=== PATIENT | female | born 1950 | race Caucasian/White ===

== ENCOUNTER 2018-04-23 18:37 | Inpatient (IN) | payer OTHER ==
[2018-04-23] MEDS ORDERED: ALBUTEROL/IPRATROPIUM (NEB) 3 ML AMP HHN (21:30)
[2018-04-23] MEDS ORDERED: NACL 0.9% 3 ML SYG IV (21:30)
[2018-04-23] MEDS ORDERED: NITROGLYCERIN (SL) 0.4 MG TAB SL (21:30)
[2018-04-23] MEDS ORDERED: ONDANSETRON 4 MG INJ IV (21:30)
[2018-04-23] MEDS ORDERED: ACETAMINOPHEN 325 MG TAB PO (21:30)
[2018-04-24] MEDS: FAMOTIDINE 20 MG TAB PO (05:50)
[2018-04-24 06:12] LABS: ADD MAN DIFF? NO
[2018-04-24 06:25] LABS: BASOPHILS % 0.4 % (0.0-2.0); EOSINOPHILS # 0.3 10^3/ul (0.0-0.5); EOSINOPHILS % 3.8 % (0.0-7.0); HEMATOCRIT 24.1 % (37.0-47.0); HEMOGLOBIN 7.4 g/dl (12.0-16.0); LYMPHOCYTES # 1.4 10^3/ul (0.8-2.9); LYMPHOCYTES % 17.8 % (15.0-51.0); MEAN CORPUSCULAR HEMOGLOBIN 28.9 pg (29.0-33.0); MEAN CORPUSCULAR HGB CONC 30.7 g/dl (32.0-37.0); MEAN CORPUSCULAR VOLUME 94.1 fl (82.0-101.0); MEAN PLATELET VOLUME 9.6 fl (7.4-10.4); MONOCYTE # 0.6 10^3/ul (0.3-0.9); MONOCYTES % 7.5 % (0.0-11.0); NEUTROPHIL # 5.4 10^3/ul (1.6-7.5); NEUTROPHILS % 70.2 % (39.0-77.0); PLATELET COUNT 213 10^3/UL (140-415); RED BLOOD COUNT 2.56 10^6/ul (4.20-5.40); RED CELL DISTRIBUTION WIDTH 16.7 % (11.5-14.5)
[2018-04-24 06:25] LABS: WHITE BLOOD COUNT 7.6 10^3/ul (4.8-10.8)
[2018-04-24 06:40] LABS: HEMOGLOBIN A1C 5.1 % (0-5.9)
[2018-04-24 06:44] LABS: CREATINE KINASE 37 IU/L (23-200)
[2018-04-24 06:50] LABS: CK INDEX 8.7; CK-MB 3.22 ng/ml (0.0-2.4)
[2018-04-24 07:03] LABS: ALANINE AMINOTRANSFERASE 60 IU/L (13-69); ALBUMIN 2.1 g/dl (3.3-4.9); ALBUMIN/GLOBULIN RATIO 0.56; ALKALINE PHOSPHATASE 408 IU/L (42-121); ANION GAP 6 (5-13); ASPARTATE AMINO TRANSFERASE 55 IU/L (15-46); BILIRUBIN,INDIRECT 0.1 mg/dl (0-1.1); BILIRUBIN,TOTAL 0.1 mg/dl (0.2-1.3); BLOOD UREA NITROGEN 24 mg/dl (7-20); CALCIUM 8.3 mg/dl (8.4-10.2); CARBON DIOXIDE 27 mmol/L (21-31); CHLORIDE 105 mmol/L (97-110); CHOL/HDL RATIO 4.3 RATIO; CHOLESTEROL 105 mg/dl (100-200); CREATININE 2.73 mg/dl (0.44-1.00); Estimated GFR 17 mL/min (>60); GLUCOSE 104 mg/dl (70-220); HDL CHOLESTEROL 24 mg/dl (35-98); LDL CHOLESTEROL,CALCULATED 62 mg/dl; MAGNESIUM 1.7 mg/dl (1.7-2.5); POTASSIUM 4.2 mmol/L (3.5-5.1); SODIUM 138 mmol/L (135-144); TOTAL PROTEIN 5.8 g/dl (6.1-8.1); TRIGLYCERIDES 95 mg/dl (0-149)
[2018-04-24] MEDS ORDERED: HEPARIN 5,000 UNIT/0.5 ML VIAL ×2 (08:42→20:17)
[2018-04-24] MEDS: AMIODARONE 200 MG TAB PO (08:56)
[2018-04-24] MEDS: ASPIRIN (EC) 81 MG TAB PO (08:56)
[2018-04-24] MEDS: MULTIVIT/CA CARB/B CMPLX/FA TAB PO (08:56)
[2018-04-24] MEDS: METOPROLOL 25 MG TAB PO ×2 (08:57→20:45)
[2018-04-24] MEDS: LEVOFLOXACIN 500MG/D5W (PMX) 100 ML IVPB (09:10)
[2018-04-24] MEDS: HEPARIN 5,000 UNIT/1 ML VIAL SC ×2 (10:08→20:51)
[2018-04-24] MEDS: BALSAM PERU/CASTOR OIL 60 GM TUBE TOP ×2 (11:16→20:52)
[2018-04-24 12:36] LABS: B-TYPE NATRIURETIC PEPTIDE 45100 PG/ML (0-125)
[2018-04-24] MEDS: ALBUTEROL/IPRATROPIUM (NEB) 3 ML AMP HHN ×3 (12:53→20:55)
[2018-04-24 15:23] LABS: HEPATITIS B SURFACE ANTIGEN NEGATIVE (NEGATIVE)
[2018-04-24 15:41] LABS: HEPATITIS B SURFACE ANTIBODY NEGATIVE (NEGATIVE)
[2018-04-24] MEDS: HEPARIN 1000 UNITS/ML 10 ML INJ CATHETER (17:19)
[2018-04-24] MEDS: EPOETIN 10000 UNITS/1 ML INJ (ESRD) SC (18:13)
[2018-04-24] MEDS: ATORVASTATIN 40 MG TAB PO (20:38)
[2018-04-25] MEDS: FAMOTIDINE 20 MG TAB PO ×2 (05:49→08:57)
[2018-04-25 06:05] LABS: ADD MAN DIFF? NO
[2018-04-25 06:12] LABS: WHITE BLOOD COUNT 7.4 10^3/ul (4.8-10.8)
[2018-04-25 06:12] LABS: BASOPHILS % 0.4 % (0.0-2.0); EOSINOPHILS # 0.1 10^3/ul (0.0-0.5); EOSINOPHILS % 1.9 % (0.0-7.0); HEMATOCRIT 23.8 % (37.0-47.0); HEMOGLOBIN 7.2 g/dl (12.0-16.0); LYMPHOCYTES # 1.5 10^3/ul (0.8-2.9); LYMPHOCYTES % 19.8 % (15.0-51.0); MEAN CORPUSCULAR HGB CONC 30.3 g/dl (32.0-37.0); MEAN PLATELET VOLUME 9.7 fl (7.4-10.4); MONOCYTE # 0.6 10^3/ul (0.3-0.9); MONOCYTES % 7.5 % (0.0-11.0); NEUTROPHIL # 5.2 10^3/ul (1.6-7.5); PLATELET COUNT 237 10^3/UL (140-415); RED BLOOD COUNT 2.48 10^6/ul (4.20-5.40); RED CELL DISTRIBUTION WIDTH 16.4 % (11.5-14.5)
[2018-04-25 06:34] LABS: IRON 22 ug/dl (35-150)
[2018-04-25 06:43] LABS: % IRON SATURATION 14 % SAT (22-52); TOTAL IRON BINDING CAPACITY 157 ug/dl (241-421)
[2018-04-25 07:05] LABS: ANION GAP 4 (5-13); BLOOD UREA NITROGEN 11 mg/dl (7-20); CALCIUM 8.1 mg/dl (8.4-10.2); CARBON DIOXIDE 30 mmol/L (21-31); CHLORIDE 105 mmol/L (97-110); CREATININE 1.47 mg/dl (0.44-1.00); Estimated GFR 36 mL/min (>60); GLUCOSE 104 mg/dl (70-220); POTASSIUM 4.5 mmol/L (3.5-5.1); SODIUM 139 mmol/L (135-144)
[2018-04-25] MEDS ORDERED: HEPARIN 5,000 UNIT/0.5 ML VIAL ×2 (08:43→21:02)
[2018-04-25] MEDS: AMIODARONE 200 MG TAB PO (08:57)
[2018-04-25] MEDS: MULTIVIT/CA CARB/B CMPLX/FA TAB PO (08:57)
[2018-04-25] MEDS: METOPROLOL 25 MG TAB PO ×2 (08:57→21:07)
[2018-04-25] MEDS: BALSAM PERU/CASTOR OIL 60 GM TUBE TOP ×2 (08:58→21:20)
[2018-04-25] MEDS: HEPARIN 5,000 UNIT/1 ML VIAL SC ×2 (09:00→21:20)
[2018-04-25] MEDS: ASPIRIN (EC) 81 MG TAB PO (09:00)
[2018-04-25] MEDS: ALBUTEROL/IPRATROPIUM (NEB) 3 ML AMP HHN ×4 (09:43→20:18)
[2018-04-25] MEDS: SOD FERRIC GLUC COMPLX 125 MG in SOD CHLORIDE 0.9% 100 ML IVPB (12:49)
[2018-04-25] MEDS: ATORVASTATIN 40 MG TAB PO (21:06)
[2018-04-26 06:58] LABS: ADD MAN DIFF? NO
[2018-04-26 07:12] LABS: WHITE BLOOD COUNT 7.5 10^3/ul (4.8-10.8)
[2018-04-26 07:12] LABS: ABNORMAL IP MESSAGE 1; BASOPHILS % 0.5 % (0.0-2.0); EOSINOPHILS # 0.1 10^3/ul (0.0-0.5); EOSINOPHILS % 1.9 % (0.0-7.0); HEMATOCRIT 22.2 % (37.0-47.0); LYMPHOCYTES # 1.3 10^3/ul (0.8-2.9); LYMPHOCYTES % 17.2 % (15.0-51.0); MEAN CORPUSCULAR HEMOGLOBIN 28.8 pg (29.0-33.0); MEAN CORPUSCULAR HGB CONC 30.6 g/dl (32.0-37.0); MEAN CORPUSCULAR VOLUME 94.1 fl (82.0-101.0); MEAN PLATELET VOLUME 9.5 fl (7.4-10.4); MONOCYTE # 0.5 10^3/ul (0.3-0.9); MONOCYTES % 6.7 % (0.0-11.0); NEUTROPHIL # 5.5 10^3/ul (1.6-7.5); NEUTROPHILS % 73.4 % (39.0-77.0); PLATELET COUNT 222 10^3/UL (140-415); RED BLOOD COUNT 2.36 10^6/ul (4.20-5.40); RED CELL DISTRIBUTION WIDTH 16.6 % (11.5-14.5)
[2018-04-26 07:15] LABS: POSITIVE DIFF @See below
[2018-04-26 07:20] LABS: HEMOGLOBIN 6.8 g/dl (12.0-16.0)
[2018-04-26 07:56] LABS: ANION GAP 5 (5-13); BLOOD UREA NITROGEN 20 mg/dl (7-20); CALCIUM 8.3 mg/dl (8.4-10.2); CARBON DIOXIDE 28 mmol/L (21-31); CHLORIDE 102 mmol/L (97-110); CREATININE 2.36 mg/dl (0.44-1.00); Estimated GFR 21 mL/min (>60); GLUCOSE 98 mg/dl (70-220); PHOSPHORUS 3.7 mg/dl (2.5-4.9); POTASSIUM 4.9 mmol/L (3.5-5.1); SODIUM 135 mmol/L (135-144)
[2018-04-26] MEDS ORDERED: HEPARIN 5,000 UNIT/0.5 ML VIAL (08:29)
[2018-04-26] MEDS: MULTIVIT/CA CARB/B CMPLX/FA TAB PO (08:34)
[2018-04-26 08:35] LABS: ANISOCYTOSIS 1+ (0-0); BURR CELLS 1+ (0-0); EOSINOPHILS % (M) 4 % (0-7); GIANT THROMBO% (M) 1 % (0-0); LYMPHOCYTES #M 1.2 10^3/ul (0.8-2.9); LYMPHOCYTES % (M) 16 % (15-51); MONOCYTE #M 0.3 10^3/ul (0.3-0.9); MONOCYTES % (M) 5 % (0-11); POIKILOCYTOSIS 2+ (0-0); POLYCHROMASIA 2+ (0-0); SEGMENTED NEUTROPHILS (M) % 75 % (39-77); SMUDGE%M 4 % (0-0)
[2018-04-26] MEDS: ASPIRIN (EC) 81 MG TAB PO (08:35)
[2018-04-26] MEDS: FAMOTIDINE 20 MG TAB PO (08:35)
[2018-04-26] MEDS: AMIODARONE 200 MG TAB PO (08:36)
[2018-04-26] MEDS: BALSAM PERU/CASTOR OIL 60 GM TUBE TOP ×2 (08:36→20:42)
[2018-04-26] MEDS: METOPROLOL 25 MG TAB PO ×2 (08:40→20:41)
[2018-04-26] MEDS: HEPARIN 5,000 UNIT/1 ML VIAL SC (08:40)
[2018-04-26 08:42] LABS: PATH REVIEW? YES
[2018-04-26 08:43] LABS: PLATELET ESTIMATE NORMAL
[2018-04-26] MEDS: ALBUTEROL/IPRATROPIUM (NEB) 3 ML AMP HHN ×4 (09:50→20:17)
[2018-04-26 10:55] LABS: IMMEDIATE SPIN CROSSMATCH 1 4
[2018-04-26] MEDS: HEPARIN 1000 UNITS/ML 10 ML INJ CATHETER (12:36)
[2018-04-26] MEDS: LEVOFLOXACIN 250MG/D5W (PMX) 50 ML IVPB (12:56)
[2018-04-26] MEDS: SOD FERRIC GLUC COMPLX 125 MG in SOD CHLORIDE 0.9% 100 ML IVPB (17:40)
[2018-04-26] MEDS: ATORVASTATIN 40 MG TAB PO (20:41)
[2018-04-27 06:11] LABS: ADD MAN DIFF? NO
[2018-04-27 06:16] LABS: BASOPHILS % 0.4 % (0.0-2.0); EOSINOPHILS # 0.2 10^3/ul (0.0-0.5); EOSINOPHILS % 1.9 % (0.0-7.0); HEMATOCRIT 32.6 % (37.0-47.0); HEMOGLOBIN 10.5 g/dl (12.0-16.0); LYMPHOCYTES # 1.5 10^3/ul (0.8-2.9); LYMPHOCYTES % 16.1 % (15.0-51.0); MEAN CORPUSCULAR HEMOGLOBIN 29.1 pg (29.0-33.0); MEAN CORPUSCULAR HGB CONC 32.2 g/dl (32.0-37.0); MEAN CORPUSCULAR VOLUME 90.3 fl (82.0-101.0); MEAN PLATELET VOLUME 9.5 fl (7.4-10.4); MONOCYTE # 0.8 10^3/ul (0.3-0.9); NEUTROPHIL # 6.5 10^3/ul (1.6-7.5); NEUTROPHILS % 72.4 % (39.0-77.0); PLATELET COUNT 240 10^3/UL (140-415); RED BLOOD COUNT 3.61 10^6/ul (4.20-5.40); RED CELL DISTRIBUTION WIDTH 16.7 % (11.5-14.5)
[2018-04-27 06:35] LABS: PROTIME 14.4 Sec (11.9-14.9); PT RATIO 1.1
[2018-04-27 06:36] LABS: PARTIAL THROMBOPLASTIN TIME 37.5 Sec (23.0-35.0)
[2018-04-27 06:44] LABS: ANION GAP 6 (5-13); BLOOD UREA NITROGEN 14 mg/dl (7-20); CALCIUM 8.3 mg/dl (8.4-10.2); CARBON DIOXIDE 29 mmol/L (21-31); CHLORIDE 103 mmol/L (97-110); CREATININE 2.08 mg/dl (0.44-1.00); Estimated GFR 24 mL/min (>60); GLUCOSE 103 mg/dl (70-220); PHOSPHORUS 3.1 mg/dl (2.5-4.9); POTASSIUM 4.6 mmol/L (3.5-5.1); SODIUM 138 mmol/L (135-144)
[2018-04-27] MEDS: ALBUTEROL/IPRATROPIUM (NEB) 3 ML AMP HHN ×4 (08:48→20:31)
[2018-04-27] MEDS: ASPIRIN (EC) 81 MG TAB PO (09:42)
[2018-04-27] MEDS: MULTIVIT/CA CARB/B CMPLX/FA TAB PO (09:43)
[2018-04-27] MEDS: FAMOTIDINE 20 MG TAB PO (09:43)
[2018-04-27] MEDS: AMIODARONE 200 MG TAB PO (09:43)
[2018-04-27] MEDS: METOPROLOL 25 MG TAB PO ×2 (09:43→20:35)
[2018-04-27] MEDS: BALSAM PERU/CASTOR OIL 60 GM TUBE TOP ×2 (09:44→20:22)
[2018-04-27] MEDS: SOD FERRIC GLUC COMPLX 125 MG in SOD CHLORIDE 0.9% 100 ML IVPB (17:32)
[2018-04-27] MEDS: EPOETIN 10000 UNITS/1 ML INJ (ESRD) SC (17:33)
[2018-04-27] MEDS: ATORVASTATIN 40 MG TAB PO (20:22)
[2018-04-28 07:49] LABS: ADD MAN DIFF? NO
[2018-04-28 08:00] LABS: WHITE BLOOD COUNT 7.2 10^3/ul (4.8-10.8)
[2018-04-28 08:01] LABS: BASOPHILS % 0.4 % (0.0-2.0); EOSINOPHILS # 0.2 10^3/ul (0.0-0.5); EOSINOPHILS % 2.1 % (0.0-7.0); HEMATOCRIT 35.1 % (37.0-47.0); HEMOGLOBIN 11.4 g/dl (12.0-16.0); LYMPHOCYTES # 1.4 10^3/ul (0.8-2.9); MEAN CORPUSCULAR HEMOGLOBIN 29.2 pg (29.0-33.0); MEAN CORPUSCULAR HGB CONC 32.5 g/dl (32.0-37.0); MEAN CORPUSCULAR VOLUME 89.8 fl (82.0-101.0); MEAN PLATELET VOLUME 9.2 fl (7.4-10.4); MONOCYTE # 0.5 10^3/ul (0.3-0.9); MONOCYTES % 7.3 % (0.0-11.0); NEUTROPHIL # 5.1 10^3/ul (1.6-7.5); NEUTROPHILS % 70.8 % (39.0-77.0); PLATELET COUNT 221 10^3/UL (140-415); RED BLOOD COUNT 3.91 10^6/ul (4.20-5.40); RED CELL DISTRIBUTION WIDTH 16.6 % (11.5-14.5)
[2018-04-28 08:20] LABS: ANION GAP 8 (5-13); BLOOD UREA NITROGEN 21 mg/dl (7-20); CALCIUM 8.7 mg/dl (8.4-10.2); CARBON DIOXIDE 26 mmol/L (21-31); CHLORIDE 101 mmol/L (97-110); CREATININE 2.64 mg/dl (0.44-1.00); Estimated GFR 18 mL/min (>60); GLUCOSE 100 mg/dl (70-220); POTASSIUM 4.4 mmol/L (3.5-5.1); SODIUM 135 mmol/L (135-144)
[2018-04-28] MEDS: ALBUTEROL/IPRATROPIUM (NEB) 3 ML AMP HHN ×3 (08:38→16:13)
[2018-04-28] MEDS: METOPROLOL 25 MG TAB PO (09:00)
[2018-04-28] MEDS: MULTIVIT/CA CARB/B CMPLX/FA TAB PO (09:04)
[2018-04-28] MEDS: ASPIRIN (EC) 81 MG TAB PO (09:04)
[2018-04-28] MEDS: BALSAM PERU/CASTOR OIL 60 GM TUBE TOP (09:04)
[2018-04-28] MEDS: AMIODARONE 200 MG TAB PO (09:05)
[2018-04-28] MEDS: FAMOTIDINE 20 MG TAB PO (09:05)
[2018-04-28] MEDS: LEVOFLOXACIN 250MG/D5W (PMX) 50 ML IVPB (09:05)
[2018-04-28 09:09] LABS: ALANINE AMINOTRANSFERASE 35 IU/L (13-69); ALBUMIN 2.5 g/dl (3.3-4.9); ALKALINE PHOSPHATASE 236 IU/L (42-121); ASPARTATE AMINO TRANSFERASE 58 IU/L (15-46); BILIRUBIN,INDIRECT 0.3 mg/dl (0-1.1); BILIRUBIN,TOTAL 0.3 mg/dl (0.2-1.3); LIPASE 84 U/L (23-300); TOTAL PROTEIN 6.6 g/dl (6.1-8.1)
[2018-04-28] MEDS: HEPARIN 1000 UNITS/ML 10 ML INJ CATHETER (15:02)
[2018-04-28] MEDS: SOD FERRIC GLUC COMPLX 125 MG in SOD CHLORIDE 0.9% 100 ML IVPB (16:29)
== END 2018-04-28 17:44 | disposition home health service (06) | DRG 291 ==
LOC: TEL 18:37
PROC: 5A1D70Z Performance of Urinary Filtration, Intermittent, Less than 6 Hours Per Day (ICD-10-PCS; 2018-04-24)
PROC: 5A1D70Z Performance of Urinary Filtration, Intermittent, Less than 6 Hours Per Day (ICD-10-PCS; 2018-04-25)
PROC: 30233N1 Transfusion of Nonautologous Red Blood Cells into Peripheral Vein, Percutaneous Approach (ICD-10-PCS; 2018-04-26)
PROC: 5A1D70Z Performance of Urinary Filtration, Intermittent, Less than 6 Hours Per Day (ICD-10-PCS; principal; 2018-04-27)
DX: I13.2 Hypertensive heart and chronic kidney disease with heart failure and with stage 5 chronic kidney disease, or end stage renal disease (principal); L89.153 Pressure ulcer of sacral region, stage 3; N18.6 End stage renal disease; J18.9 Pneumonia, unspecified organism; I50.23 Acute on chronic systolic (congestive) heart failure; I69.954 Hemiplegia and hemiparesis following unspecified cerebrovascular disease affecting left non-dominant side; I48.0 Paroxysmal atrial fibrillation; N28.1 Cyst of kidney, acquired; D63.1 Anemia in chronic kidney disease; N28.89 Other specified disorders of kidney and ureter; E78.5 Hyperlipidemia, unspecified; Z99.2 Dependence on renal dialysis; I25.2 Old myocardial infarction
CPT/HCPCS: 36430; 71045; 76700; 80048; 80053; 80061; 80076; 82550; 82553; 82728; 82962; 83036; 83540; 83690; 83735; 83880; 84100; 84443; 84484; 85025; 85610; 85730; 86706; 86850; 86900; 86901; 86920; 87340; 90935; 93306; 94640; 94664

== ENCOUNTER 2018-06-09 11:09 | Inpatient (IN) | payer OTHER ==
[2018-06-09] MEDS ORDERED: ACETAMINOPHEN 325 MG TAB PO (14:00)
[2018-06-09] MEDS ORDERED: HYDROCODONE/APAP (5/325) TAB PO (14:00)
[2018-06-09] MEDS ORDERED: ONDANSETRON 4 MG INJ IV (14:00)
[2018-06-09] MEDS ORDERED: NACL 0.9% 3 ML SYG IV (14:00)
[2018-06-09] MEDS: FAMOTIDINE 20 MG TAB PO (20:14)
[2018-06-09] MEDS: ATORVASTATIN 40 MG TAB PO (20:14)
[2018-06-09] MEDS: METOPROLOL 25 MG TAB PO (20:15)
[2018-06-09] MEDS: HEPARIN 5,000 UNIT/1 ML VIAL SC (21:24)
[2018-06-10 05:53] LABS: ADD MAN DIFF? NO
[2018-06-10 05:55] LABS: WHITE BLOOD COUNT 9.7 10^3/ul (4.8-10.8)
[2018-06-10 05:55] LABS: BASOPHIL # 0.1 10^3/ul (0.0-0.1); BASOPHILS % 0.5 % (0.0-2.0); EOSINOPHILS # 0.3 10^3/ul (0.0-0.5); EOSINOPHILS % 2.6 % (0.0-7.0); HEMATOCRIT 26.6 % (37.0-47.0); HEMOGLOBIN 8.2 g/dl (12.0-16.0); LYMPHOCYTES # 2.5 10^3/ul (0.8-2.9); LYMPHOCYTES % 25.7 % (15.0-51.0); MEAN CORPUSCULAR HEMOGLOBIN 28.9 pg (29.0-33.0); MEAN CORPUSCULAR HGB CONC 30.8 g/dl (32.0-37.0); MEAN CORPUSCULAR VOLUME 93.7 fl (82.0-101.0); MEAN PLATELET VOLUME 9.3 fl (7.4-10.4); MONOCYTE # 0.5 10^3/ul (0.3-0.9); MONOCYTES % 5.3 % (0.0-11.0); NEUTROPHIL # 6.4 10^3/ul (1.6-7.5); NEUTROPHILS % 65.5 % (39.0-77.0); PLATELET COUNT 216 10^3/UL (140-415); RED BLOOD COUNT 2.84 10^6/ul (4.20-5.40)
[2018-06-10 06:29] LABS: ALANINE AMINOTRANSFERASE 14 IU/L (13-69); ALBUMIN 2.8 g/dl (3.3-4.9); ALBUMIN/GLOBULIN RATIO 0.71; ALKALINE PHOSPHATASE 137 IU/L (42-121); ANION GAP 14 (5-13); ASPARTATE AMINO TRANSFERASE 18 IU/L (15-46); BILIRUBIN,INDIRECT 0.4 mg/dl (0-1.1); BILIRUBIN,TOTAL 0.4 mg/dl (0.2-1.3); BLOOD UREA NITROGEN 34 mg/dl (7-20); CALCIUM 8.6 mg/dl (8.4-10.2); CARBON DIOXIDE 24 mmol/L (21-31); CHLORIDE 99 mmol/L (97-110); CREATININE 3.27 mg/dl (0.44-1.00); Estimated GFR 14 mL/min (>60); GLUCOSE 92 mg/dl (70-220); PHOSPHORUS 5.9 mg/dl (2.5-4.9); POTASSIUM 4.5 mmol/L (3.5-5.1); SODIUM 137 mmol/L (135-144); TOTAL PROTEIN 6.7 g/dl (6.1-8.1)
[2018-06-10 07:08] LABS: HEMOGLOBIN A1C 5.2 % (0-5.9)
[2018-06-10 08:31] LABS: IRON 60 ug/dl (35-150)
[2018-06-10 08:40] LABS: % IRON SATURATION 45 % SAT (22-52); TOTAL IRON BINDING CAPACITY 133 ug/dl (241-421)
[2018-06-10] MEDS ORDERED: MULTIVIT/CA CARB/B CMPLX/FA TAB PO (09:00)
[2018-06-10] MEDS: MULTIVIT/CA CARB/B CMPLX/FA TAB PO (09:34)
[2018-06-10] MEDS: AMIODARONE 200 MG TAB PO (09:34)
[2018-06-10] MEDS: METOPROLOL 25 MG TAB PO ×2 (09:35→22:06)
[2018-06-10] MEDS: SEVELAMER CARBONATE 800 MG TABLET PO ×4 (09:35→22:06)
[2018-06-10] MEDS: HEPARIN 5,000 UNIT/1 ML VIAL SC ×2 (09:52→22:11)
[2018-06-10] MEDS: SOD CHLORIDE 0.9% 100 ML (10:43)
[2018-06-10] MEDS: IOHEXOL 300MG/ML 150 ML BTL (10:44)
[2018-06-10 14:13] LABS: HEPATITIS B SURFACE ANTIGEN NEGATIVE (NEGATIVE)
[2018-06-10] MEDS: HEPARIN 1000 UNITS/ML 10 ML INJ CATHETER (17:50)
[2018-06-10] MEDS: EPOETIN 4000 UNITS/1 ML INJ (ESRD) SC (17:55)
[2018-06-10] MEDS: ATORVASTATIN 40 MG TAB PO (22:06)
[2018-06-10] MEDS: FAMOTIDINE 20 MG TAB PO (22:06)
[2018-06-11 05:21] LABS: ADD MAN DIFF? NO
[2018-06-11 05:30] LABS: WHITE BLOOD COUNT 9.6 10^3/ul (4.8-10.8)
[2018-06-11 05:30] LABS: BASOPHIL # 0.1 10^3/ul (0.0-0.1); BASOPHILS % 0.6 % (0.0-2.0); EOSINOPHILS # 0.2 10^3/ul (0.0-0.5); EOSINOPHILS % 1.9 % (0.0-7.0); HEMATOCRIT 27.6 % (37.0-47.0); HEMOGLOBIN 8.6 g/dl (12.0-16.0); LYMPHOCYTES # 2.5 10^3/ul (0.8-2.9); LYMPHOCYTES % 25.6 % (15.0-51.0); MEAN CORPUSCULAR HEMOGLOBIN 29.1 pg (29.0-33.0); MEAN CORPUSCULAR HGB CONC 31.2 g/dl (32.0-37.0); MEAN CORPUSCULAR VOLUME 93.2 fl (82.0-101.0); MEAN PLATELET VOLUME 9.1 fl (7.4-10.4); MONOCYTE # 0.7 10^3/ul (0.3-0.9); MONOCYTES % 7.2 % (0.0-11.0); NEUTROPHIL # 6.2 10^3/ul (1.6-7.5); NEUTROPHILS % 64.4 % (39.0-77.0); PLATELET COUNT 245 10^3/UL (140-415); RED BLOOD COUNT 2.96 10^6/ul (4.20-5.40); RED CELL DISTRIBUTION WIDTH 17.8 % (11.5-14.5)
[2018-06-11 06:13] LABS: ALANINE AMINOTRANSFERASE 16 IU/L (13-69); ALBUMIN 3.1 g/dl (3.3-4.9); ALKALINE PHOSPHATASE 159 IU/L (42-121); ANION GAP 9 (5-13); ASPARTATE AMINO TRANSFERASE 24 IU/L (15-46); BILIRUBIN,INDIRECT 0.3 mg/dl (0-1.1); BILIRUBIN,TOTAL 0.3 mg/dl (0.2-1.3); BLOOD UREA NITROGEN 16 mg/dl (7-20); CALCIUM 8.8 mg/dl (8.4-10.2); CARBON DIOXIDE 30 mmol/L (21-31); CHLORIDE 100 mmol/L (97-110); CREATININE 2.07 mg/dl (0.44-1.00); Estimated GFR 24 mL/min (>60); GLUCOSE 89 mg/dl (70-220); PHOSPHORUS 3.7 mg/dl (2.5-4.9); POTASSIUM 4.4 mmol/L (3.5-5.1); SODIUM 139 mmol/L (135-144); TOTAL PROTEIN 7.5 g/dl (6.1-8.1)
[2018-06-11] MEDS: AMIODARONE 200 MG TAB PO (08:59)
[2018-06-11] MEDS: MULTIVIT/CA CARB/B CMPLX/FA TAB PO (08:59)
[2018-06-11] MEDS: BALSAM PERU/CASTOR OIL 60 GM TUBE TOP (09:00)
[2018-06-11] MEDS: METOPROLOL 25 MG TAB PO (09:00)
[2018-06-11] MEDS: HEPARIN 5,000 UNIT/1 ML VIAL SC (09:11)
[2018-06-11] MEDS: SEVELAMER CARBONATE 800 MG TABLET PO (13:01)
== END 2018-06-11 15:45 | disposition home or self-care (01) | DRG 698 ==
LOC: TEL 11:09 → MS1 06-10 12:47
PROC: 5A1D70Z Performance of Urinary Filtration, Intermittent, Less than 6 Hours Per Day (ICD-10-PCS; principal; 2018-06-10)
DX: S37.092A Other injury of left kidney, initial encounter (principal); N18.6 End stage renal disease; I48.0 Paroxysmal atrial fibrillation; Z79.01 Long term (current) use of anticoagulants; Z99.2 Dependence on renal dialysis; D63.8 Anemia in other chronic diseases classified elsewhere; Y84.8 Other medical procedures as the cause of abnormal reaction of the patient, or of later complication, without mention of misadventure at the time of the procedure; Y73.0 Diagnostic and monitoring gastroenterology and urology devices associated with adverse incidents; I50.9 Heart failure, unspecified
CPT/HCPCS: 74177; 80053; 82728; 83036; 83540; 83735; 84100; 85025; 87340; 90935

== ENCOUNTER 2018-06-15 11:17 | Inpatient (IN) | payer OTHER ==
[2018-06-15] MEDS: ALBUTEROL 0.5% (NEB) 2.5 MG/0.5 ML AMP INH (12:35)
[2018-06-15 13:12] LABS: AADO2 Arterial 80.4 mmHg (7.0-24.0); Allen Test ACCEPTAB; Arterial Base Excess 2.5 mmol/L (-3.0-3); Arterial COHb 1.1 % (0.0-3.0); Arterial Fraction of Oxyhgb 97.7 % (93.0-99.0); Arterial HCO3 25.4 mmol/L (22.0-26.0); Arterial MetHb 0.2 % (0.0-1.5); Arterial pCO2 33.1 mmhg (35-45); MODE MASK - SIMPLE; Site Right Radial
[2018-06-15 13:18] LABS: ADD MAN DIFF? NO
[2018-06-15] MEDS: CEFEPIME 1GM/50 ML (PMX) 50 ML IVPB (13:21)
[2018-06-15 13:22] LABS: BASOPHILS % 0.4 % (0.0-2.0); EOSINOPHILS # 0.1 10^3/ul (0.0-0.5); EOSINOPHILS % 0.9 % (0.0-7.0); HEMOGLOBIN 8.7 g/dl (12.0-16.0); LYMPHOCYTES # 3.4 10^3/ul (0.8-2.9); MEAN CORPUSCULAR HEMOGLOBIN 29.6 pg (29.0-33.0); MEAN CORPUSCULAR HGB CONC 31.1 g/dl (32.0-37.0); MEAN CORPUSCULAR VOLUME 95.2 fl (82.0-101.0); MEAN PLATELET VOLUME 9.3 fl (7.4-10.4); MONOCYTES % 9.8 % (0.0-11.0); NEUTROPHIL # 5.5 10^3/ul (1.6-7.5); NEUTROPHILS % 54.5 % (39.0-77.0); NUCLEATED RED BLOOD CELLS% 0.2 /100WBC (0.0-0.0); PLATELET COUNT 189 10^3/UL (140-415); RED BLOOD COUNT 2.94 10^6/ul (4.20-5.40); RED CELL DISTRIBUTION WIDTH 19.6 % (11.5-14.5)
[2018-06-15 13:22] LABS: WHITE BLOOD COUNT 10.1 10^3/ul (4.8-10.8)
[2018-06-15] MEDS: IBUPROFEN 600 MG TAB PO (13:22)
[2018-06-15] MEDS: SODIUM CHLORIDE 0.9% 1L BAG IV* (13:23)
[2018-06-15 13:40] LABS: INR 1.12; PROTIME 14.5 Sec (11.9-14.9); PT RATIO 1.1
[2018-06-15 13:41] LABS: PARTIAL THROMBOPLASTIN TIME 33.2 Sec (23.0-35.0)
[2018-06-15 13:49] LABS: ALANINE AMINOTRANSFERASE 10 IU/L (13-69); ALBUMIN 3.5 g/dl (3.3-4.9); ALBUMIN/GLOBULIN RATIO 0.79; ALKALINE PHOSPHATASE 143 IU/L (42-121); ANION GAP 11 (5-13); ASPARTATE AMINO TRANSFERASE 35 IU/L (15-46); BILIRUBIN,INDIRECT 0.4 mg/dl (0-1.1); BILIRUBIN,TOTAL 0.4 mg/dl (0.2-1.3); BLOOD UREA NITROGEN 36 mg/dl (7-20); CALCIUM 8.7 mg/dl (8.4-10.2); CARBON DIOXIDE 29 mmol/L (21-31); CHLORIDE 97 mmol/L (97-110); CREATININE 2.85 mg/dl (0.44-1.00); Estimated GFR 17 mL/min (>60); GLUCOSE 110 mg/dl (70-220); LIPASE 327 U/L (23-300); POTASSIUM 4.6 mmol/L (3.5-5.1); SODIUM 137 mmol/L (135-144); TOTAL PROTEIN 7.9 g/dl (6.1-8.1)
[2018-06-15 14:01] LABS: TROPONIN-I 0.089 ng/ml (0.000-0.120)
[2018-06-15] MEDS ORDERED: NACL 0.9% 3 ML SYG IV (14:30)
[2018-06-15] MEDS ORDERED: NITROGLYCERIN (SL) 0.4 MG TAB SL (14:30)
[2018-06-15] MEDS ORDERED: ACETAMINOPHEN 325 MG TAB PO (14:30)
[2018-06-15] MEDS ORDERED: MAGNESIUM HYDROXIDE 30ML CUP PO (14:30)
[2018-06-15] MEDS ORDERED: ONDANSETRON 4 MG INJ IV (14:30)
[2018-06-15] MEDS ORDERED: morphine 2 MG INJ IV (14:30)
[2018-06-15] MEDS ORDERED: LORAZEPAM 2 MG INJ IV (14:30)
[2018-06-15] MEDS ORDERED: hydrALAzine 20 MG INJ IV (14:30)
[2018-06-15] MEDS ORDERED: HYDROCODONE/APAP (5/325) TAB PO (14:30)
[2018-06-15] MEDS ORDERED: DOCUSATE SODIUM 100 MG CAP PO (14:30)
[2018-06-15] MEDS ORDERED: ALBUMIN HUMAN 25% 50 ML IV (15:00)
[2018-06-15] MEDS ORDERED: HEPARIN 1000 UNITS/ML 10 ML INJ CATHETER (15:00)
[2018-06-15] MEDS ORDERED: SODIUM CHLORIDE 0.9% 1L BAG IV (15:00)
[2018-06-15] MEDS: AZITHROMYCIN 500MG/NS (PMX) 250 ML IVPB (15:02)
[2018-06-15 15:21] LABS: FREE T4 (FREE THYROXINE) 2.19 ng/dl (0.78-2.44)
[2018-06-15] MEDS: PIPER-TAZO 3.375 GM IV (PMX) 100 ML IVPB (17:48)
[2018-06-15] MEDS ORDERED: PIPER-TAZO 3.375 GM IV (PMX) 100 ML IVPB (18:00)
[2018-06-15 18:06] LABS: LACTIC ACID 1.9 mmol/L (0.5-2.0)
[2018-06-15] MEDS: ATORVASTATIN 40 MG TAB PO (20:32)
[2018-06-15] MEDS: METOPROLOL 25 MG TAB PO (20:32)
[2018-06-15] MEDS: FAMOTIDINE 20 MG TAB PO (20:32)
[2018-06-15 22:59] LABS: LACTIC ACID 0.9 mmol/L (0.5-2.0)
[2018-06-16] MEDS: PIPER-TAZO 3.375 GM IV (PMX) 100 ML IVPB (04:13)
[2018-06-16 05:46] LABS: ADD MAN DIFF? NO
[2018-06-16 05:51] LABS: BASOPHILS % 0.2 % (0.0-2.0); EOSINOPHILS # 0.2 10^3/ul (0.0-0.5); EOSINOPHILS % 3.2 % (0.0-7.0); HEMOGLOBIN 8.2 g/dl (12.0-16.0); LYMPHOCYTES # 1.2 10^3/ul (0.8-2.9); LYMPHOCYTES % 19.1 % (15.0-51.0); MEAN CORPUSCULAR HEMOGLOBIN 29.2 pg (29.0-33.0); MEAN CORPUSCULAR HGB CONC 30.4 g/dl (32.0-37.0); MEAN CORPUSCULAR VOLUME 96.1 fl (82.0-101.0); MEAN PLATELET VOLUME 9.6 fl (7.4-10.4); MONOCYTE # 0.5 10^3/ul (0.3-0.9); MONOCYTES % 7.6 % (0.0-11.0); NEUTROPHIL # 4.2 10^3/ul (1.6-7.5); NEUTROPHILS % 69.2 % (39.0-77.0); PLATELET COUNT 155 10^3/UL (140-415); RED BLOOD COUNT 2.81 10^6/ul (4.20-5.40); RED CELL DISTRIBUTION WIDTH 19.5 % (11.5-14.5)
[2018-06-16 06:14] LABS: HDL CHOLESTEROL 32 mg/dl (35-98); LDL CHOLESTEROL,CALCULATED 52 mg/dl; TRIGLYCERIDES 59 mg/dl (0-149)
[2018-06-16 06:14] LABS: CHOLESTEROL 96 mg/dl (100-200)
[2018-06-16 06:20] LABS: ANION GAP 11 (5-13); BLOOD UREA NITROGEN 52 mg/dl (7-20); CALCIUM 8.3 mg/dl (8.4-10.2); CARBON DIOXIDE 29 mmol/L (21-31); CHLORIDE 98 mmol/L (97-110); CREATININE 3.45 mg/dl (0.44-1.00); Estimated GFR 13 mL/min (>60); GLUCOSE 96 mg/dl (70-220); MAGNESIUM 2.1 mg/dl (1.7-2.5); PHOSPHORUS 6.2 mg/dl (2.5-4.9); POTASSIUM 5.1 mmol/L (3.5-5.1); SODIUM 138 mmol/L (135-144)
[2018-06-16] MEDS: METOPROLOL 25 MG TAB PO (08:53)
[2018-06-16] MEDS: AMIODARONE 200 MG TAB PO (08:54)
[2018-06-16] MEDS: ALBUTEROL/IPRATROPIUM (NEB) 3 ML AMP HHN ×2 (09:37→13:39)
[2018-06-16 10:49] LABS: LACTIC ACID 1.9 mmol/L (0.5-2.0)
[2018-06-16] MEDS: CEPASTAT LOZENGE MT (14:46)
== END 2018-06-16 15:00 | disposition home or self-care (01) | DRG 152 ==
LOC: E/R 11:17 → TEL 14:25
DX: J06.9 Acute upper respiratory infection, unspecified (principal); J18.9 Pneumonia, unspecified organism; N18.6 End stage renal disease; I13.2 Hypertensive heart and chronic kidney disease with heart failure and with stage 5 chronic kidney disease, or end stage renal disease; I48.91 Unspecified atrial fibrillation; Z86.73 Personal history of transient ischemic attack (TIA), and cerebral infarction without residual deficits; Z99.2 Dependence on renal dialysis
CPT/HCPCS: 36415; 36600; 71045; 80048; 80053; 80061; 82803; 83036; 83605; 83690; 83735; 84100; 84439; 84443; 84484; 85025; 85610; 85730; 87040; 87081; 93005; 94640; 94644; 96374; 99285-25